=== PATIENT | male | born 1965 | race Caucasian/White ===

== ENCOUNTER 2019-03-08 05:23 | Inpatient (IN) ==
--- NOTE | 2019-02-23 16:29 | PAT Medication Instructions ---
Medication Instructions Date of Service February 23, 2019 Home Medications losartan 100 mg-hydrochlorothiazide 12.5 mg tablet 1 tab PO QAM famotidine [Pepcid AC] 20 mg PO DAILY PRN DO NOT take the morning of surgery losartan 100 mg-hydrochlorothiazide 12.5 mg tablet 1 tab PO QAM famotidine [Pepcid AC] 20 mg PO DAILY PRN Other Notes If you have any questions please call us at [phone] or [phone] or [phone] or [phone]
--- NOTE | 2019-02-24 14:33 | Anesthesiology Consultation ---
Date of Service February 24, 2019 Assessment & Plan Chart Review Chart Review: Pending: Refer to Additional Notes / Consult section (labs) THE PATIENT HAS A HISTORY OF ATYPICAL PSEUDOCHOLINESTERASE AND WAS ON A VENTILATOR FOR APPROXIMATELY TWO HOURS WIDE AWAKE AND UNABLE TO MOVE AFTER A PREVIOUS SURGERY. HE HAS BEEN TESTED FOR IT. Consults Requested none History Surgery Operation Date: 03/08/19 11:40 Proposed Procedures p Robotic Assisted Laparoscopic Prostectomy, Possible Open, Possible Pelvic Lymph Node Dissection, Possible Suprapubic Tube Placement - Yariel Degroot MD Height/Weight Height: 5 ft 7 in Weight: 105.1 kg Allergies Allergy/AdvReac Type Severity Reaction Status Date / Time No Known Drug Allergies Allergy Verified 02/22/19 11:40 Medications Home Medications Medication Instructions Recorded Confirmed Last Taken losartan 100 1 tab PO QAM 01/18/19 02/22/19 Unknown mg-hydrochlorothiazide 12.5 mg tablet omeprazole magnesium [Prilosec OTC] 20 mg PO QAM PRN 02/24/19 02/24/19 Unknown Past Medical History Medical History Prostate cancer (Acute) Hill palsy SLIGHT WEAKNESS ON RT SIDE OF FACE CURRENTLY GERD (gastroesophageal reflux disease) Hypertension Osteoarthritis Restless leg syndrome Past Family History Family History Mother Diabetes Father Melanoma Diabetes Hypertension Brother No problems noted. Brother Colon abnormality Brother , age 23 after a fall No problems noted. Sister No problems noted. Daughter No problems noted. Daughter No problems noted. Grandfather (Paternal) , age 78 / "also had some type of cancer " Myocardial infarction Past Surgical History Surgical History Family history of reaction to anesthesia UNSURE BUT ALL MEMBERS TESTED FOR "MISSING ENZYME FOR DIFFICULTY WAKING UP FROM ANESTHESIA" ? WHO WAS TESTED POSITIVE BUT IS A GENETIC TRAIT. H/O prostate biopsy History of anesthesia reaction PT REPORTS HAS A "LACK OF ENZYME MAKING IT DIFFICULT TO WAKE UP FROM" LAST SURGERY WAS AVNI AT [facility] 5 YEARS AGO. History of herniorrhaphy RT INGUINAL HERNIA History of tooth extraction History of total hip arthroplasty LEFT Social History Smoking Status: Never smoker tobacco type: smokeless tobacco Do You Dip or Chew Tobacco: Yes (4 CANS WEEKLY) Hx Alcohol Use: Yes Alcohol type: beer alcohol intake frequency: a few times a week Hx Substance Use: No substance use type: does not use Physical Exam Vital Signs Last Vital Signs Temp 36.8 C 02/24/19 13:54 Pulse 79 02/24/19 13:54 Resp 18 02/24/19 13:54 BP 145/86 H 02/24/19 13:54 Pulse Ox 97 02/24/19 13:54
[2019-02-24 15:46] LABS: Basophils # (auto) 0.04 K/uL (0-0.2); Basophils % (auto) 0.5 %; Eosinophils # (auto) 0.15 K/uL (0-0.5); Eosinophils % (auto) 1.8 %; Hematocrit (blood only) 42.8 % (42-52); Hemoglobin 14.8 g/dL (14.0-18.0); Immature Granulocytes # (auto) 0.01 K/uL (0.00-0.02); Immature Granulocytes % (auto) 0.1 %; Lymphocytes # (auto) 2.44 K/uL (1.2-3.4); Mean Corpuscular Hemoglobin 32.9 pg (25-34); Mean Corpuscular Hgb Conc 34.6 g/dL (32-36); Mean Corpuscular Volume 95.1 fL (80-100); Mean Platelet Volume 10.3 fL (7.4-10.4); Monocytes # (auto) 0.54 K/uL (0.11-0.59); Monocytes % (auto) 6.4 %; Neutrophils # (auto) 5.24 K/uL (1.4-6.5); Neutrophils % (auto) 62.2 %; Platelet Count 229 K/uL (130-400); RDW Coefficient of Variation 12.7 % (11.5-14.5); White Blood Count 8.42 K/uL (4.8-10.8)
[2019-02-24 15:48] LABS: Appearance Urine Clear (Clear); Bilirubin Urine Negative (Negative); Blood Urine Negative (Negative); Color Urine Yellow; Glucose Urine UA Negative (Negative); Ketones Urine Negative (Negative); Leukocyte Esterase Urine Negative (Negative); Nitrite Urine Negative (Negative); Protein Urine Negative (Negative); Specific Gravity Urine 1.016 (1.000-1.030); Urobilinogen Urine Negative (Negative)
[2019-02-24 15:52] LABS: BUN Creatinine Ratio 10.5 (10-20); Calcium 8.9 mg/dl (8.5-10.1); Est GFR (African American) 93.5; Est GFR (Non-African American) 80.7; Potassium 3.9 mmol/L (3.5-5.1)
[2019-03-08] MEDS ORDERED: CEFAZOLIN 2000MG 2,000 MG/15 ML SYR IV SCH (06:00)
[2019-03-08] MEDS ORDERED: HEPARIN SOD 5,000 UNIT/0.5 ML VIAL SQ SCH (06:00)
[2019-03-08] MEDS ORDERED: LR 15ML/HR IV SCH (06:00)
[2019-03-08] MEDS ORDERED: MIDAZOLAM HCL 1 MG/ML 2ML VIAL ONE (07:00)
[2019-03-08] MEDS ORDERED: PROPOFOL IV EMULSION 10 MG/ML 20 ML VIAL IV ONE (07:00)
[2019-03-08] MEDS ORDERED: fentaNYL citrate 100 MCG/2 ML VIAL ONE (07:00)
[2019-03-08] MEDS ORDERED: LIDOCAINE HCL 2% 2 ML VIAL/AMP(20MG/ML) INFIL ONE (07:00)
[2019-03-08] MEDS ORDERED: BUPIVACAINE 0.5 % 5 MG/1 ML MPF 30ML VIAL ONE (07:00)
[2019-03-08] MEDS ORDERED: ROCURONIUM BROMIDE 10 MG/ML 5 ML VIAL ONE ×2 (07:02→10:33)
[2019-03-08] MEDS ORDERED: HYDROmorphone INJ 2 MG/ML SYR/VIAL IV PRN (07:08)
[2019-03-08] MEDS ORDERED: ONDANSETRON INJ 2 MG/ML 2 ML VIAL IV PRN ×2 (07:08→12:35)
[2019-03-08] MEDS ORDERED: fentaNYL citrate 100 MCG/2 ML VIAL IV PRN (07:08)
[2019-03-08] MEDS ORDERED: ATROPINE SULFATE 0.1 MG/ML 10ML SYR IV PRN (07:08)
[2019-03-08] MEDS ORDERED: ePHEDrine sulfate 50 MG/ML AMP IV PRN (07:08)
[2019-03-08] MEDS ORDERED: PROMETHAZINE HCL 12.5 MG in SODIUM CHLORIDE 0.9% 50 ML IV PRN (07:08)
[2019-03-08] MEDS ORDERED: METOCLOPRAMIDE HCL INJ 5 MG/ML 2 ML VIAL IV PRN (07:08)
--- NOTE | 2019-03-08 07:25 | History & Physical Bridge Note ---
Date of Service March 08, 2019 History & Physical Bridge Note I have examined the patient, reviewed the History & Physical and in the interval since the performance of the History & Physical I have noted the following changes of clinical significance: no changes noted
[2019-03-08] MEDS ORDERED: BELLADONNA/OPIUM SUPP 60 MG SUPP PR ONE (07:53)
[2019-03-08] MEDS ORDERED: KETAMINE HCL INJ 50 MG/ML 10 ML VIAL ONE (08:00)
[2019-03-08] MEDS ORDERED: HYDROmorphone INJ 2 MG/ML SYR/VIAL ONE (08:19)
[2019-03-08] MEDS ORDERED: BELLADONNA/OPIUM SUPP 60 MG SUPP PR PRN (08:42)
[2019-03-08] MEDS ORDERED: FLOSEAL HEMOSTATIC MATRIX 10ML TOP ONE (09:45)
[2019-03-08] MEDS ORDERED: LABETALOL HCL IV 5 MG/ML 20ML IV ONE ×2 (10:33→11:40)
[2019-03-08] MEDS ORDERED: ONDANSETRON INJ 2 MG/ML 2 ML VIAL ONE ×2 (10:33)
[2019-03-08] MEDS ORDERED: ePHEDrine sulfate 50 MG/ML SYR ONE (10:33)
[2019-03-08] MEDS ORDERED: GLYCOPYRROLATE 0.2 MG/ML VIAL ONE (10:33)
[2019-03-08] MEDS ORDERED: NEOSTIGMINE METHYLSULFATE 5 MG/5 ML SYR ONE (10:33)
--- NOTE | 2019-03-08 11:01 | Operative Report ---
PG Post Operative Report Pre & Post Diagnosis Operation Date: 03/08/19 07:30 Pre-Op Diagnosis: Prostate Cancer Post-Op Diagnosis: Prostate Cancer I identified the patient and participated in the time-out.: Yes Procedure Operation Date: 03/08/19 07:30 Actual Procedures p Robotic Assisted Laparoscopic Prostectomy, Pelvic Lymph Node Dissection(Not Applicable) - Yariel Degroot MD Surgeon Gorge Degroot MD Dump Truck Driver [address] [place] Estimated Blood Loss 250 Findings Consistent with Post-Op Diagnosis Specimens 1. Periprostatic fat. #2 prostate and seminal vesicles #3 left pelvic lymph nodes #4 right pelvic lymph nodes Description of Procedure The patient was identified in the preoperative holding area, appropriate informed consents were reviewed and completed, and he was transported to the operating suite. Subcutaneous heparin was administered in the pre-operative holding area. Upon arrival in the operating suite, he received appropriate antibiotics and general anesthesia. He was positioned in dorsal lithotomy, a B&O suppository was inserted after digital rectal exam, and he was prepped and d raped in standard fashion. A Greenberg catheter was inserted in the sterile field. A Veress needle was passed per umbilicus with uniform insufflation of the abdomen to 15mmHg. He was placed in steep Trendelenburg position. A periumbilical incision was then made to accommodate a 12mm Visiport with 10mm 0degree laparoscope. Inspection of the abdomen was carried out, and there was no evidence of traumatic entry or injury secondary to the Veress needle. After confirming a clear anterior abdominal wall, ports were subsequently placed in standard robotic prostatectomy fashion without incident. To begin the robotic portion of the case, the left lateral aspect of the sigmoid was mobilized off of the left pelvic side wall to allow the pouch of Melquiades to be appropriately visualized. I then made an incision in the pouch of Melquiades, overlying the seminal vesicles. Both SVs as well as the ampullae of the vasa were entirely dissected, with the vasa transected 3cm from the prostate. The medial umbilical ligaments were then controlled with bipolar electrocautery just inferior to the umbilicus. Following cauterization, they were divided utilizing monopolar cautery. A peritoneal incision was carried from this location to the medial aspect of the internal inguinal rings bilaterally with care to avoid opening through the ring. This incision was concluded when the vas deferens was reached. Dissection of the bladder and prostate off of the posterior aspect of the pubic arch was completed allowing full visualization of the prostate. The fat overlying the prostate was removed en bloc and passed off the table as a specimen labeled "periprostatic fat". The endopelvic fascia was cleared during this portion of the procedure, and subsequently opened - first on the right and then the left. The incision through the endopelvic fascia began near the prostate-bladder junction and was carried to the apex with extreme care to preserve all lateral levator musculature as well as the periurethral musculature and sphincter complex. The puboprostatic ligaments were thinned slightly bilaterally before placing a 0-Vicryl figure of 8 stitch around the DVC. The lymph node dissection was then conducted. External iliac vessels were identified on the pelvic side wall. The packet of fat and lymphatic tissue that resides just under the iliac vein was elevated and off of the vein with a split and roll technique. The packet was dissected laterally to the circumflex vein and distally to the obturator nerve which was preserved. The proximal aspect of the packet was carried towards the bifurcation of the iliac vessels. A combination of monopolar and bipolar cautery were used to assist with control. Clips were placed at the proximal and distal aspects of the packet prior to transection. After completing the dissection on both sides, the packets were collected and passed off of the table as specimens labeled "pelvic lymph nodes". My attention then returned to the prostate, with identification of the bladder neck aided by gentle traction on the Greenberg catheter and lateral to medial pressure at the presumed level of the bladder neck with the robotic instruments. An anterior cystotomy was made, the Greenberg balloon deflated and the catheter guided through the incision to allow anterior retraction. I attempted to preserve maximal bladder neck musculature as I circumferentially dissected around the bladder neck. After incision through the posterior aspect of the mucosa, the dissection was carried through detrusor muscle until the bilateral ampullae of the vasa were identified. The previously dissected vasa and SVs were brought through the incision and used to elevated the prostate anteriorly. A posterior plane behind the prostate was then developed - splitting Denonvilliers's fascia. This dissection was carried as far as possible towards the apex as well as far as possible laterally. An incision in the lateral prostatic fascia was then made bilaterally to facilitate control of the vascular pedicles. The pedicles were each controlled with a series of Weck clips. The neurovascular bundles were identified with nerve sparing approach on the right, and a cautious approach on the left given his higher degree of cancer. He is a Trish style stitch was used to bertin the peritoneum against her previously dissected area The apical attachments of the prostate were remaining at that stage. The DVC was divided with bipolar electrocautery. Natasha-prostatic tissue incised with sharp dissection and monopolar cautery. Maximal urethral length was preserved before dividing the urethra sharply. The prostate was entirely freed at that point, and collected in an EndoCatch bag before being moved out of the field of vision. Hemostasis was confirmed and anastomosis of the bladder and urethra was completed utilizing a double armed V- Lock stitch. A new Greenberg catheter was inserted and the anastomosis tested with irrigation. There was no evidence of leak. FloSeal coagulant was placed around the anastomosis. A Trish style stitch with a 0 Vicryl was used to invert the peritoneum inferior to the iliac vessels on the right and the left. This is performed to prevent lymphocele formation postoperatively. The robot was undocked, the specimen extracted through expansion of the natasha- umbilical camera port. The fascia was closed with a series a running 0 Vicryl. The right retirement assistant port was closed in two layers - with a figure of 8 0-Vicryl to reapproximate the fascia followed by 4-0 Monocryl to close the skin. Monocryl was used to close all other skin incisions. All wounds were dressed with Dermabond. The case was concluded and the patient taken to the PACU in stable condition. Ann Potter assisted from incision to closure. I attest to the content of the Intraoperative Record and any orders documented therein. Any exceptions are noted below.
[2019-03-08 11:35] LABS: Basophils # (auto) 0.01 K/uL (0-0.2); Basophils % (auto) 0.1 %; Eosinophils # (auto) 0.01 K/uL (0-0.5); Eosinophils % (auto) 0.1 %; Hematocrit (blood only) 40.8 % (42-52); Hemoglobin 14.4 g/dL (14.0-18.0); Immature Granulocytes # (auto) 0.02 K/uL (0.00-0.02); Immature Granulocytes % (auto) 0.2 %; Lymphocytes # (auto) 0.87 K/uL (1.2-3.4); Lymphocytes % (auto) 10.3 %; Mean Corpuscular Hemoglobin 33.3 pg (25-34); Mean Corpuscular Volume 94.4 fL (80-100); Mean Platelet Volume 9.3 fL (7.4-10.4); Monocytes # (auto) 0.11 K/uL (0.11-0.59); Monocytes % (auto) 1.3 %; Neutrophils # (auto) 7.41 K/uL (1.4-6.5); Platelet Count 246 K/uL (130-400); RDW Coefficient of Variation 12.7 % (11.5-14.5); RDW Standard Deviation 44.1 fL (36.4-46.3); Red Blood Count 4.32 M/uL (4.7-6.1); White Blood Count 8.43 K/uL (4.8-10.8)
[2019-03-08] MEDS: LABETALOL HCL IV 5 MG/ML 20ML IV PRN ×2 (11:40→11:45)
[2019-03-08 11:55] LABS: Mean Corpuscular Hgb Conc 35.3 g/dL (32-36)
[2019-03-08 11:56] LABS: BUN Creatinine Ratio 15.2 (10-20); Calcium 8.3 mg/dl (8.5-10.1); Est GFR (African American) 70.9; Est GFR (Non-African American) 61.2; Potassium 3.9 mmol/L (3.5-5.1)
--- NOTE | 2019-03-08 12:08 | Anesthesiology Progress Note ---
Date of Service March 08, 2019 Anesthesia Post Procedure Vital Signs Vital Signs: Temp Pulse Pulse Resp BP BP Pulse Ox 03/08/19 12:00 36.4 C L 79 17 132/83 94 03/08/19 11:50 85 14 128/89 94 03/08/19 11:40 95 H 16 156/101 H 93 03/08/19 11:30 92 H 16 161/95 H 94 03/08/19 11:20 90 16 144/95 H 95 03/08/19 11:10 94 H 16 159/106 H 97 03/08/19 11:04 36.0 C L 105 H 18 122/82 98 03/08/19 05:48 36.7 C 68 18 129/72 98 Transfer of Care Handoff Completed per policy Notes Mental Status: alert / awake / arousable and participated in evaluation Patient Amnestic to Procedure: Yes Nausea / Vomiting: adequately controlled Pain: adequately controlled Airway Patency, RR, SpO2: stable & adequate BP & HR: stable & adequate Hydration State: stable & adequate Anesthetic Complications: no major complications apparent
[2019-03-08] MEDS ORDERED: HYDROmorphone INJ 1 MG/ML SYRINGE IV PRN (12:35)
[2019-03-08] MEDS ORDERED: HYDROmorphone INJ 0.5 MG/0.5 ML SYR IV PRN (12:35)
[2019-03-08] MEDS ORDERED: PANTOprazole 40 MG TAB PO PRN (12:35)
[2019-03-08] MEDS ORDERED: OXYCODONE HCL IR 5 MG TAB (IMMEDIATE RELEASE) PO PRN ×2 (12:35)
[2019-03-08] MEDS: LACTATED RINGER'S 1,000 ML IV SCH ×2 (12:48→22:24)
[2019-03-08] MEDS: ACETAMINOPHEN 1,000 MG/100 ML VIAL IV SCH ×2 (13:44→20:25)
[2019-03-08] MEDS ORDERED: INFLUENZA VIRUS QUAD VACCINE 0.5 ML SYR IM ONE (15:00)
[2019-03-08] MEDS ORDERED: INFLUENZA ADMINISTRATION CHARGE ONE (15:00)
[2019-03-08] MEDS: CEFAZOLIN 2000MG 2,000 MG/15 ML SYR IV SCH (15:57)
[2019-03-08] MEDS: HEPARIN SOD 5,000 UNIT/0.5 ML VIAL SQ SCH (20:26)
[2019-03-09] MEDS: CEFAZOLIN 2000MG 2,000 MG/15 ML SYR IV SCH (00:13)
[2019-03-09] MEDS: ACETAMINOPHEN 1,000 MG/100 ML VIAL IV SCH ×3 (04:20→20:39)
[2019-03-09 06:18] LABS: Basophils # (auto) 0.01 K/uL (0-0.2); Basophils % (auto) 0.1 %; Hematocrit (blood only) 40.2 % (42-52); Hemoglobin 13.7 g/dL (14.0-18.0); Immature Granulocytes # (auto) 0.03 K/uL (0.00-0.02); Immature Granulocytes % (auto) 0.2 %; Lymphocytes # (auto) 1.49 K/uL (1.2-3.4); Lymphocytes % (auto) 9.7 %; Mean Corpuscular Hemoglobin 32.5 pg (25-34); Mean Corpuscular Hgb Conc 34.1 g/dL (32-36); Mean Corpuscular Volume 95.3 fL (80-100); Mean Platelet Volume 9.9 fL (7.4-10.4); Monocytes # (auto) 0.98 K/uL (0.11-0.59); Monocytes % (auto) 6.4 %; Neutrophils # (auto) 12.92 K/uL (1.4-6.5); Neutrophils % (auto) 83.6 %; Platelet Count 263 K/uL (130-400); RDW Standard Deviation 45.1 fL (36.4-46.3); Red Blood Count 4.22 M/uL (4.7-6.1); White Blood Count 15.43 K/uL (4.8-10.8)
[2019-03-09 06:45] LABS: Calcium 9.2 mg/dl (8.5-10.1); Creatinine Clr Calc Pharmacy 83.9 ml/min; Est GFR (African American) 81.2
[2019-03-09] MEDS: LACTATED RINGER'S 1,000 ML IV SCH ×2 (08:30→18:13)
[2019-03-09] MEDS: LOSARTAN POTASSIUM 50 MG TAB PO SCH (09:44)
[2019-03-09] MEDS: HEPARIN SOD 5,000 UNIT/0.5 ML VIAL SQ SCH ×2 (09:46→20:45)
[2019-03-09] MEDS: LOSARTAN/HCTZ 50/12.5MG TAB PO SCH (09:46)
[2019-03-09] MEDS ORDERED: bisacodyL 10 MG SUPP PR PRN (11:28)
--- NOTE | 2019-03-09 12:30 | Urology Progress Note ---
Date of Service March 09, 2019 Assessment & Plan (1) Prostate cancer: Postop day #1 status post radical prostatectomy Progressing appropriately, labs stable, vital stable Continue ambulation and slow diet advance Pending his improvement throughout the day possible discharge home later today Subjective Did relatively well overnight It expected catheter related discomfort He did ambulate He has some gas related pain but overall is progressing appropriately Physical Exam Physical Exam: Urine clear Catheter draining appropriately Incisions are all appropriate Minimal bruising under his umbilical incision No bulge, no signs of infection Results & Data Vital Signs (Past 12 Hours) Vital Signs Temp Pulse Resp BP BP Pulse Ox 03/09/19 11:09 36.8 C 91 H 18 112/71 95 03/09/19 06:58 36.8 C 88 18 141/78 H 95 03/09/19 03:21 36.6 C 97 H 16 130/77 96 PG Care Time/CCT Total # of Minutes Spent Total Time Spent with Patient: Total time spent is greater than 50% in coordination of care (as documented) at patient's floor/unit and/or counseling patient:
--- NOTE | 2019-03-09 15:53 | Urology Progress Note ---
Date of Service March 09, 2019 Assessment & Plan (1) Prostate cancer: Postop day #1 status post radical prostatectomy Re-evaluated later this AM in person, continues to experience gas pains. PRN dulcolax ordered. Encourage ambulation. UPDATE: Spoke to RN at 3PM, pt did not eat lunch due to bloating/discomfort. Continue with full liquids only for dinner. Pt had small flatus, per bloating as improved. Continues to deny n/v. Will keep overnight tonight to ensure return of bowel function. Continue to monitor. Subjective Pt evaluated later this AM, Feels some bloating and gas pains. No flatus yet. Ambulating lightly. umanzor draining light yellow no n/v/f/c Results & Data Vital Signs (Past 12 Hours) Vital Signs Temp Pulse Resp BP BP Pulse Ox 03/09/19 15:36 37.1 C 94 H 22 121/74 93 03/09/19 11:09 36.8 C 91 H 18 112/71 95 03/09/19 06:58 36.8 C 88 18 141/78 H 95 PG Care Time/CCT Total # of Minutes Spent Total Time Spent with Patient: Total time spent is greater than 50% in coordination of care (as documented) at patient's floor/unit and/or counseling patient:
[2019-03-10] MEDS: LACTATED RINGER'S 1,000 ML IV SCH (04:10)
[2019-03-10] MEDS: ACETAMINOPHEN 1,000 MG/100 ML VIAL IV SCH (05:07)
[2019-03-10 06:44] LABS: Basophils # (auto) 0.02 K/uL (0-0.2); Basophils % (auto) 0.2 %; Eosinophils # (auto) 0.08 K/uL (0-0.5); Eosinophils % (auto) 0.9 %; Hematocrit (blood only) 34.1 % (42-52); Hemoglobin 11.6 g/dL (14.0-18.0); Immature Granulocytes # (auto) 0.02 K/uL (0.00-0.02); Immature Granulocytes % (auto) 0.2 %; Lymphocytes # (auto) 1.87 K/uL (1.2-3.4); Lymphocytes % (auto) 21.1 %; Mean Corpuscular Hemoglobin 32.9 pg (25-34); Mean Corpuscular Volume 96.6 fL (80-100); Mean Platelet Volume 9.5 fL (7.4-10.4); Monocytes # (auto) 0.78 K/uL (0.11-0.59); Monocytes % (auto) 8.8 %; Neutrophils # (auto) 6.08 K/uL (1.4-6.5); Neutrophils % (auto) 68.8 %; Platelet Count 194 K/uL (130-400); RDW Coefficient of Variation 13.1 % (11.5-14.5); RDW Standard Deviation 45.9 fL (36.4-46.3); Red Blood Count 3.53 M/uL (4.7-6.1); White Blood Count 8.85 K/uL (4.8-10.8)
[2019-03-10 07:02] LABS: Potassium 3.6 mmol/L (3.5-5.1)
[2019-03-10 07:44] LABS: BUN Creatinine Ratio 17.7 (10-20); Calcium 8.1 mg/dl (8.5-10.1); Est GFR (African American) 99.2; Est GFR (Non-African American) 85.5
--- NOTE | 2019-03-10 07:48 | Urology Progress Note ---
Date of Service March 10, 2019 Assessment & Plan (1) Prostate cancer: Postop day #2 status post radical prostatectomy Pt doing much better today. Improved bowel function, pain controlled Feels he is ready for discharge. Expected clinical course and discharge instructions reviewed. Convert umanzor to leg bag prior to discharge. Outpatient follow up appts confirmed. Okay to discharge home when ride available. Subjective Pt doing much better today. Bloating has much improved, passing flatus last night ambulating well Tolerated regular diet for dinner Denies n/v. Pain controlled with PRN meds Review of Systems Review of Systems: All systems reviewed & are unremarkable except as noted in HPI & below Physical Exam Physical Exam: A&Ox3 RRR Abd soft, nontender incisions c/d/i umanzor draining clear yellow Results & Data Vital Signs (Past 12 Hours) Vital Signs Temp Pulse Resp BP Pulse Ox 03/09/19 23:05 36.8 C 86 18 126/74 93
[2019-03-10] MEDS: LOSARTAN POTASSIUM 50 MG TAB PO SCH (08:34)
[2019-03-10] MEDS: LOSARTAN/HCTZ 50/12.5MG TAB PO SCH (08:34)
[2019-03-10] MEDS: HEPARIN SOD 5,000 UNIT/0.5 ML VIAL SQ SCH (08:35)
--- NOTE | 2019-03-14 13:54 | Discharge Summary ---
Date of Service March 14, 2019 Admission HPI Per Admitting Provider Prostate cancer and elevated PSApresenting for robotic prostatectomy Principal Diagnosis Prostate cancer Discharge Data Allergies Allergy/AdvReac Type Severity Reaction Status Date / Time No Known Drug Allergies Allergy Verified 03/08/19 05:47 Procedures Performed Operation Date: 03/08/19 07:30 Actual Procedures p Robotic Assisted Laparoscopic Prostectomy, Pelvic Lymph Node Dissection - Yariel Degroot MD Hospital Course (1) Prostate cancer: Patient admitted for a robotic prostatectomy - details of the procedure as dictated previously in my operative report - in summary, he tolerated the procedure very well - he was in stable condition overnight with appropriate urine output and stable labs -He was kept 1 additional day secondary to slight distention of his abdomen, began passing flatus and a small bowel movement on the evening of postoperative day 1. - he was subsequently discharged home with a umanzor catheter - he was in stable condition at the time of discharge Total Time Total Time Spent Total Time Spent (In Minutes): 30 Total Time Includes: Examination of the Patient, Discharge Planning and Medication Reconciliation Discharge Plan Discharge Items Patient Disposition: Home - Self-Care Reason For Visit: Prostate Cancer Discharge Diagnosis: prostate cancer Condition on Discharge: Good Activity: Per Instructions section Lifting: No more than 10 pounds Bathing: Keep incision dry Bathing Comment: okay to shower, no tub baths or soaking. Sexual Activity: Wait until after follow-up appointment Exercise/Sports: Wait until after follow-up appointment Driving/Machine Use: Please do not drive while taking prescription pain control Non-emergency contact: Urologist Call non-emergency contact if: your symptoms worsen, your wound has increased redness, your wound has increased drainage and your wound pain has increased Follow-up/Referrals: PCP,NO [Primary Care Provider] - Diet: Regular Addtl Attending Provider Instructions: Please take all medications as prescribed and keep all follow-ups as scheduled. Please call our office at [phone] with any questions, concerns or need to reschedule appointments for any reason. We are happy to assist you We have sent an antibiotic to your pharmacy of choice. Please begin antibiotic as prescribed the day BEFORE your scheduled voiding trial at [facility]. Please continue antibiotic every 12 hours through the day AFTER your voiding trial. Activity: We recommend having someone with you for the first few days after surgery to help care for you. For the first 2 weeks after surgery, we would like you to get up and walk around your house. However, we recommend limit physical activity that would increase your heart rate. This will allow your body to rest and heal. Take naps if you feel tired. Don't lift anything heavier than 10 pounds, mow the law or ride a bicycle until your follow-up appointment. Please avoid long car rides. Home Care: Unless directed otherwise, drink 6 to 8 glasses of water a day (enough to keep your urine light colored). This will also help keep a healthy flow of urine. We recommend using a stool softener for the first two weeks to avoid constipation. Umanzor Catheter care: Keep the catheter well secured with either a leg back or leg strap with large bag. Empty your bag when it's about half full. You may notice some blood in the bag. This is normal after surgery and while the catheter is in place. Use mild soap (such as Dove or Dial) and water to wash the catheter and the head of your penis daily, or more frequently if needed. Return to your normal diet, we encourage good protein intake to promote healing. You may shower as normal. Please avoid tub baths or soaking until catheter removed and incisions well healed. Wearing sweat pants while you have the catheter is recommended, they will be more comfortable. Follow-up Your follow up appointments for having your catheter removed, and follow up with your physician should already be scheduled. If you have any questions regarding this, please contact our office. Your final pathology report will be discussed at your physician follow-up appointment. Call [facility] at [phone] right away if you have any of the following: Chest pain or trouble breathing (call [phone] or go to the hospital) Fever of 101F or higher, uncontrolled vomiting Heavy bleeding, clots, or bright red blood from the catheter Catheter that falls out or stops draining Foul-smelling discharge from your catheter Redness, swelling, warmth, or increased pain at your incision site Drainage, pus, or bleeding from your incision Pending Studies at Discharge: Yes (pathology) Stand-Alone Forms: My [facility] Medications and DC Order Prescriptions: New oxycodone-acetaminophen [Percocet] 5-325 mg tablet 1 tab PO TID PRN (Reason: pain) Qty: 14 RF: 0 docusate sodium [Colace] 100 mg capsule 100 mg PO TID Qty: 60 RF: 0 Continued losartan-hydrochlorothiazide 100-12.5 mg tablet 1 tab PO QAM RF: 0 Prilosec OTC 20 mg Tablet,Delayed Release (Dr/Ec) 20 mg PO QAM PRN (Reason: Stomach Upset) RF: 0 Discharge Orders: Discharge Order (Routine); Ordered 03/10/19 Ordered By: Ann Chang/Other Patient Handouts: Catheter Bag Urinary Empty Clean, Leg Bag Care Dc Admission Data Admit Date/Time: 03/08/19 10:58 Attending Provider: Yariel Degroot Admit Provider: Yariel Degroot Primary Care Provider: PCP,NO Other Interventions: Discharge Summary Assessment (RN) Last Done: 03/10/19 08:03 DC Date/Time DO NOT enter until pt leaves facility: 03/10/19 10:03
== END 2019-03-10 10:03 | disposition home or self-care (01) | DRG 708 ==
LOC: ASU 05:23 → 3W 10:58